=== PATIENT | female | born 1975 | race Caucasian/White ===

== ENCOUNTER → 2017-08-25 | Outpatient (CLI) | payer BC, OTHER ==
[~2017-08-25] MED LIST: ACHYD1T PO; DCS100C PO; FRS325T PO; HYDR-89 PO; IBP800T PO; PREN1TAB39 PO
--- NOTE | 2017-08-25 14:58 | Diagnostic Imaging Report ---
INDICATION: Routine screening. COMPARISON: 10/13/2014 and 10/01/2013. TECHNIQUE: Screening digital mammography was performed bilaterally with a Computer Aided Detection (CAD) system. FINDINGS: Both breasts again demonstrate marked parenchymal heterogeneity and increased density limiting the sensitivity of mammography. The parenchymal pattern is stable. No dominant mass or malignant appearing microcalcifications are seen. The axillae are unremarkable. IMPRESSION: No mammographic features suspicious for malignancy are identified. ACR BI-RADS Category 1: Negative. Result letter will be mailed to the patient. Note: At least 10% of breast cancer is not imaged by mammography. Dictated by: Dictated on workstation # [id number]
== END ==
LOC: RAD 09:28
PROVIDERS: ATTEND Obstetrics & Gynecology
DX: Z12.31 Encounter for screening mammogram for malignant neoplasm of breast (principal)
CPT/HCPCS: 77067